=== PATIENT | male | born 1985 | race Native Hawaiian/Other Pacific Islander ===

== ENCOUNTER 2019-05-18 11:36 | Emergency (ER) | payer OTHER ==
[~2019-05-18] VITALS: Ht 167.6 cm; Wt 77.3 kg
[2019-05-18 11:42] VITALS: BP 134/83
[2019-05-18] MEDS ORDERED: TRIA25CR TOP (12:00)
[2019-05-18] MEDS ORDERED: IBUP-1114 PO (12:00)
[2019-05-18] MEDS ORDERED: METHOCARBAMOL 500 MG TAB PO ONE (12:45)
[2019-05-18] MEDS ORDERED: IBUPROFEN 600 MG TAB PO ONE (12:45)
--- NOTE | 2019-05-18 12:54 | REP ---
CT CERVICAL SPINE: CT cervical spine performed in the axial plane. Sagittal and coronal reconstruction images are performed. There is no compression fracture or malalignment. There is no prevertebral soft tissue swelling. There is mild disc space narrowing at C5-6. At that level there is mild disc bulging and posterior osteophytosis causing mild canal stenosis. No other abnormalities are seen. IMPRESSION: No evidence of acute fracture or dislocation. Mild degenerative disc changes at C5-6 level with mild disc bulging, posterior osteophytosis and canal stenosis. Electronically Signed by Rush Almazan MD 05/18/2019 06:49 P
--- NOTE | 2019-05-18 12:55 | REP ---
CT LUMBAR SPINE: CT lumbar spine performed in the axial plane with sagittal and coronal reconstruction images. There is no fracture or dislocation. Vertebral bodies are normal in height and are well aligned with normal lumbar lordosis. Disc spaces are well preserved. Spinal canal appears adequate. IMPRESSION: No fracture or dislocation. Electronically Signed by Rush Almazan MD 05/18/2019 06:49 P
[2019-05-18] MEDS ORDERED: ROBA750T4 PO (13:04)
== END 2019-05-18 13:16 | disposition home or self-care (01) ==
LOC: M ED 11:36 → EDBD 11:36 → M ED 13:16
DX: S39.012A Strain of muscle, fascia and tendon of lower back, initial encounter (principal); M50.222 Other cervical disc displacement at C5-C6 level; V43.52XA Car driver injured in collision with other type car in traffic accident, initial encounter; Y92.410 Unspecified street and highway as the place of occurrence of the external cause; Z79.899 Other long term (current) drug therapy